=== PATIENT | male | born 1995 | race Caucasian/White ===

== ENCOUNTER 2017-10-28 17:31 | Emergency (ER) | payer OTHER ==
[2017-10-28] MEDS ORDERED: Ondansetron INJ* 2 MG/ML VIAL IV ONE (17:42)
[2017-10-28] MEDS ORDERED: Morphine VIAL* 4 MG/ML VIAL (1 ml vial) IV ONE (17:43)
--- NOTE | 2017-10-28 18:04 | ED ---
Upper Extremity Pain - HPI Summary HPI Summary: 22 male presents ER with complaints of left wrist pain after falling from a ladder approximately 8 feet as he was 6 steps up just prior to arrival. FOOSH injury. Obvious deformity to the left wrist. Denies numbness however has some tingling intermittently in his left fingers. Patient is right-hand dominant. Denies head injury and neck injury or back injury. Denies any other injury/ pain. No loss of consciousness and did not hit head. Fall was witnessed. No blood thinners in no past medical history. No medications. States pain is an 8 out of 10. No chest pain or trouble breathing. No abdominal pain. Admits to some abrasions over his knees and shins bilaterally. - History of Current Complaint Chief Complaint: EDExtremityUpper Stated Complaint: WRIST INJURY Time Seen by Provider: 10/28/17 17:40 Hx Obtained From: Patient, Family/Global Safety Officer - Coworker Mechanism Of Injury: Fall From Height Of: - Approximately 8 feet, 6 steps off a ladder Onset/Duration: Started Hours Ago, Traumatic, Still Present Timing: Constant Severity Initially: Severe Severity Currently: Moderate Pain Location: Wrist - Left Character: Sharp, Aching Aggravating Factor(s): Movement Alleviating Factor(s): Nothing, Rest Associated Signs & Symptoms: Positive: Swelling, Numbness/Tingling - tingling intermittently, Other - obvious deformity Related History: Dominant Hand Right - Allergies/Home Medications Allergies/Adverse Reactions: Allergies Allergy/AdvReac Type Severity Reaction Status Date / Time No Known Allergies Allergy Verified 10/28/17 17:44 PMH/Surg Hx/FS Hx/Imm Hx Endocrine/Hematology History: Denies: Hx Anticoagulant Therapy, Hx Diabetes Cardiovascular History: Denies: Hx Hypertension Respiratory History: Denies: Hx Asthma - Surgical History Surgery Procedure, Year, and Place: none - Immunization History Immunizations Up to Date: Yes Infectious Disease History: No Infectious Disease History: Denies: Traveled Outside the [place] in Last 30 Days - Family History Known Family History: Positive: None - Social History Alcohol Use: Rare Substance Use Type: Reports: None Smoking Status (MU): Never Smoked Tobacco Review of Systems Constitutional: Negative Cardiovascular: Negative Respiratory: Negative Positive: Arthralgia, Myalgia, Decreased ROM Positive: Paresthesia All Other Systems Reviewed And Are Negative: Yes Physical Exam Triage Information Reviewed: Yes Vital Signs On Initial Exam: Initial Vitals Temp Pulse Resp BP Pulse Ox 98.3 F 114 20 143/89 100 10/28/17 17:37 10/28/17 17:37 10/28/17 17:37 10/28/17 17:37 10/28/17 17:37 Vital Signs Reviewed: Yes Appearance: Positive: Well-Appearing, No Pain Distress, Well-Nourished Skin: Positive: Warm, Skin Color Reflects Adequate Perfusion, Dry, Other - edema left wrist. superficial abrasion to anterior knees/lower leg no active bleeding, no FB, with mild ecchymosis. no bumps or tenderness on palpation. Negative: Cold, Soft, Pale, Erythema @ Head/Face: Positive: Normal Head/Face Inspection, Other - no epistaxis, racoon eyes, facial bone tenderness or battles signs. small abrasion, no active bleeding to left forehead, no hematoma. Negative: Temporal Artery Tenderness, Scalp Eyes: Positive: Normal, EOMI, SARAVANAN, Conjunctiva Clear ENT: Positive: Normal ENT inspection, Hearing grossly normal, Pharynx normal, TMs normal, Uvula midline Neck: Positive: Supple, Nontender Respiratory/Lung Sounds: Positive: Clear to Auscultation, Breath Sounds Present. Negative: Rales, Rhonchi, Wheezes Cardiovascular: Positive: Normal, RRR, Pulses are Symmetrical in both Upper and Lower Extremities. Negative: Murmur, Rub, Tachycardia Abdomen Description: Positive: Nontender, No Organomegaly, Soft Bowel Sounds: Positive: Present Musculoskeletal: Positive: Limited @, Interruption @ - obvious deformity at left wrist, dinner fork deformity, Pain @ - left wrist, Edema Left - wrist, Other - rest of MSK exam normal full ROM, sensation and without pain/tenderness or deformity Neurological: Positive: Normal, Sensory/Motor Intact, Alert, Oriented to Person Place, Time, CN Intact II-III, Reflexes Intact, NV Bundle Intact Distally, Normal Gait Diagnostics - Vital Signs Vital Signs Temp Pulse Resp BP Pulse Ox 10/28/17 17:47 20 10/28/17 17:37 98.3 F 114 20 143/89 100 - Laboratory Lab Statement: Any lab studies that have been ordered have been reviewed, and results considered in the medical decision making process. - Radiology wrist Xray Interpretation: Positive (See Comments) - Comminuted fracture distal radius with dorsal angulation and fracture of the ulnar styloid process. Radiology Interpretation Completed By: Radiologist left forearm Xray Interpretation: Positive (See Comments) - Comminuted fracture distal radius with dorsal angulation. Radiology Interpretation Completed By: Radiologist post reduction Xray Interpretation: Positive (See Comments) - Comminuted fracture distal radius reduced from prior exam and in near anatomic alignment. Radiology Interpretation Completed By: Radiologist Re-Evaluation - Re-Evaluation First Eval Re-Evaluation Time: 19:30 Change: Improved Course/Dx - Course Course Of Treatment: Patient given morphine and Zofran for pain management prior to reduction. X-ray obtained showing fractured radius and ulna displaced. Patient required reduction. Dr. Reynolds assisted in reduction and splinting. See separate procedure note.. Hematoma block was performed. Patient was placed in a sugar tong splint. Post reduction x-ray shows near anatomical alignment. Patient tolerated procedure well and was comfortable. Sent home with pain management. Rice and ibuprofen. Follow-up with orthopedics tomorrow. Do not get splint wet. Aware worsening signs and symptoms watch out for. Follow-up with primary care provider. No other concerns at this time. Rest of exam was normal. Patient denied any other complaints or injuries/pain. Therefore no further imaging or labs were obtained. - Diagnoses Differential Diagnosis/HQI/PQRI: Positive: Fracture (Closed), Strain, Sprain Provider Diagnoses: Wrist fracture, left Discharge - Sign-Out/Discharge Documenting (check all that apply): Patient Departure - Discharge Plan Condition: Improved Disposition: HOME Prescriptions: HYDROcodone/ACETAMIN 5-325 MG* [Byers 5-325 TAB*] 1 tab PO Q6H PRN #6 tab MDD 2 PRN Reason: Pain Patient Education Materials: Wrist Fracture in Adults (ED) Referrals: Rohan Houser MD [Medical Doctor] - Additional Instructions: Call to make an appointment with orthopedics to be seen tomorrow. Rest, elevate, ice and take ibuprofen (600mg every 6 hours with food) and pain meds as needed. Do not remove splint will get splint wet. Any new or worsening symptoms please seek medical attention. Splint feels too tight U experience any numbness or tingling or loss of blood to her fingers please return to ER as we discussed. - Billing Disposition and Condition Condition: IMPROVED Disposition: Home
--- NOTE | 2017-10-28 18:38 | RAD ---
Indication: Left wrist injury. 3 views of the wrist demonstrates comminuted fracture distal radius with posterior angulation. Fracture of the ulnar styloid process is also noted. IMPRESSION: Comminuted fracture distal radius with dorsal angulation and fracture of the ulnar styloid process.
--- NOTE | 2017-10-28 18:38 | RAD ---
Indication: Left forearm injury. 2 views of left forearm demonstrates comminuted fracture distal radius with dorsal angulation. Remainder of the radius and ulna are unremarkable. IMPRESSION: Comminuted fracture distal radius with dorsal angulation.
[2017-10-28] MEDS ORDERED: Lidocaine 2% PF * 5 ML VIAL ONE (19:16)
[2017-10-28] MEDS ORDERED: fentaNYL* 50 MCG/ML 2 ML VIAL (100 MCG VIAL) IV SLOW PU ONE (19:33)
--- NOTE | 2017-10-28 20:15 | CONSULT ---
Consult Consult: Pt was seen by RAGHU Zurita. Fracture reduction and splinting done by Dr. Jyoti Reynolds. PROCEDURES: Reduction and splinting of distal radial fracture using a hematoma block with Lidocaine 2%. Using finger traps and a 10 lb weight, the fracture was manipulated and reduced. NV exam both pre and post-reduction was intact. Post- reduction XR shows significant improvement in alignment. Splinted with a sugar tong splint on the left using orthoglass.
--- NOTE | 2017-10-28 20:27 | RAD ---
Indication: Traumatic fracture distal radius 3 views of the wrist demonstrates reduction of previously identified fracture of the distal radius. Dorsal angulation has been reduced. IMPRESSION: Comminuted fracture distal radius reduced from prior exam and in near anatomic alignment.
[2017-10-28 20:28] VITALS: BP 129/78
== END 2017-10-28 20:27 | disposition home or self-care (01) ==
LOC: ED 17:31
DX: S52.502A Unspecified fracture of the lower end of left radius, initial encounter for closed fracture (principal); S52.612A Displaced fracture of left ulna styloid process, initial encounter for closed fracture; W11.XXXA Fall on and from ladder, initial encounter; Y92.9 Unspecified place or not applicable
CPT/HCPCS: 25605; 96374; 96375; 99283; J2270; J2405; J3010

== ENCOUNTER 2017-10-31 06:26 | Day surgery (SDC) | payer OTHER ==
--- NOTE | 2017-10-29 20:35 | HP ---
PREOPERATIVE HISTORY AND PHYSICAL: DATE OF ADMISSION/SURGERY: 10/31/17 - [facility] DATE OF OFFICE VISIT/ENCOUNTER: 10/29/17 ATTENDING SURGEON: Lani Bassett MD * (DICTATED BY RAGHU GIVENS) PROCEDURE: Open reduction internal fixation, left wrist. CHIEF COMPLAINT: Left wrist fracture after a fall. HISTORY OF PRESENT ILLNESS: This is a 22-year-old male, who sustained injury to his left wrist at work on 10/28/17. 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 He was up on a ladder and he fell off the ladder and landed on an outstretched left wrist. He was initially seen at [facility] Emergency Room and had x-rays, which showed a displaced fracture of the distal radius. It was reduced and placed in a splint. He was referred to Dr. Bassett for further evaluation and treatment considerations. The patient denies numbness and tingling. After evaluation by Dr. Bassett and review of x-rays, it has been recommended that the patient undergo surgical intervention at this time for best outcome. The patient has consented to proceed with an open reduction internal fixation, left wrist. PAST MEDICAL HISTORY: History of lightheadedness. The patient attributes this to not eating enough during the day and possibly some of the fumes he regularly is around during his job. PAST SURGICAL HISTORY: None. MEDICATIONS: None. ALLERGIES: No known drug allergies. FAMILY HISTORY: Prostate cancer. 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 He denies tobacco use. He does admit to smoking marijuana with some regularity. He denies drinking alcohol. REVIEW OF SYSTEMS: General: Negative for fevers, chills, night sweats, unexplained weight loss/gain. HEENT: Negative for headaches, syncopal episodes , visual changes. Integumentary: Negative for abrasions, lesions, or open wounds. Cardiothoracic: Negative for hypertension, chest pain, palpitations, edema. Respiratory: Negative for shortness of breath with exertion, chronic cough, wheezing. GI: Negative for nausea, vomiting, diarrhea, constipation, GERD. : Negative for nocturia, urinary frequency, urgency, history of UTIs, kidney problems. Musculoskeletal: Positive for current complaint. Negative for chronic or intermittent back pain. No history of fractures. Neurological: Negative for paresthesias, numbness, history of seizure, stroke, poor balance. Endocrine: Negative for diabetes and thyroid issues. Hematologic: Negative for easy bruising, anemia, bleeding disorders, history of DVT. Infectious Disease: Negative for history of MRSA, hepatitis C, HIV. PHYSICAL EXAMINATION GENERAL: Well-developed, well-nourished, 22-year-old male, in no acute distress. VITAL SIGNS: Height 5 feet 10 inches, weight 146 pounds, pulse rate 70, blood pressure 132/88. HEENT: Normocephalic, atraumatic. Pupils are equal, round, and reactive to light and accommodation. Extraocular movements are intact. NECK: Supple. No palpable lymph nodes. Throat is clear. PULMONARY: Lungs are clear to auscultation bilaterally. No wheezes, rales, or rhonchi. CARDIOVASCULAR: Regular rate and rhythm. S1, S2. No murmurs, rubs, or gallops. No edema. ABDOMEN: Positive bowel sounds, soft, nontender. MUSCULOSKELETAL: On exam of the left upper extremity, his left arm is maintained in a sugar tong splint. He has mild swelling in his fingers. There is intact sensation to light touch in his fingers and he is able to easily wiggle them. NEUROLOGICAL: Alert and oriented x3. Cranial nerves II through XII are intact. Sensation is intact to light touch. IMAGING STUDIES: X-rays of the left wrist show pre- and post-reduction views of the wrist. There is an intra-articular distal radius fracture with interval reduction, but some persistent angulation. There is also a comminuted fracture at the tip of the ulnar styloid. ASSESSMENT: Left distal radius fracture and ulnar styloid fracture with persistent malalignment. PLAN: The patient is scheduled to undergo an open reduction internal fixation, left wrist, with Dr. Bassett on 10/31/17. He will return to the office 10 days postop for followup and suture removal. A prescription for Percocet was e- scribed to the patient's pharmacy for postoperative pain management. RAGHU GIVENS [id number]/[facility] #: [id number] MTDAngel
[~2017-10-31 06:26] MED LIST: Buffered Lidocaine 0.9% SYRIN* 5 ML/SYR SYRINGE INTRADERM ONE; Sodium Citrate/Citric Acid* 15 ML UDC ONE; Sodium Citrate/Citric Acid* 15 ML UDC PO ONE; ceFAZolin 2 GM PREMIX (*) 2 GM/50 ML BAG IVPB ONE
[2017-10-31] MEDS ORDERED: Bupivacaine 0.5% PF 10 ML VIAL INJ ONE (07:08)
[2017-10-31] MEDS ORDERED: Lidocaine 2% PF * 5 ML VIAL ONE (07:15)
[2017-10-31] MEDS ORDERED: Propofol* 10 MG/ML 20 ML BTL IV PUSH ONE (07:15)
[2017-10-31] MEDS ORDERED: Midazolam* 1 MG/ML 2 ML VIAL (2 MG) ONE (07:16)
[2017-10-31] MEDS ORDERED: fentaNYL* 50 MCG/ML 2 ML VIAL (100 MCG VIAL) ONE (07:16)
[2017-10-31] MEDS ORDERED: fentaNYL* 50 MCG/ML 2 ML VIAL (100 MCG VIAL) IV PRN (07:22)
[2017-10-31] MEDS ORDERED: Naloxone* 0.4 MG/ML 1 ML VIAL IV PRN (07:22)
[2017-10-31] MEDS ORDERED: Ondansetron INJ* 2 MG/ML VIAL IV PRN (07:22)
[2017-10-31] MEDS ORDERED: Ketorolac INJ* 30 MG/ML 1 ML VIAL ONE (08:02)
[2017-10-31] MEDS ORDERED: Dexamethasone IV* 4 MG/ML 1 ML (4 MG) ONE (08:02)
[2017-10-31 08:57] VITALS: BP 117/67
--- NOTE | 2017-10-31 14:55 | OP ---
DATE OF OPERATION: 10/31/17 [facility] DATE OF : 89 SURGEON: Dr. Bassett. FUR PLUCKER: RAGHU Wells ANESTHESIA: General. PRE-OP DIAGNOSIS: Left distal radius fracture, displaced. POST-OP DIAGNOSIS: Left distal radius fracture, displaced. OPERATIVE PROCEDURE: Open reduction and internal fixation of left distal radius fracture. ESTIMATED BLOOD LOSS: Zero. TOURNIQUET TIME: About 30 minutes. INDICATION FOR PROCEDURE: Kemar is a 22-year-old male who injured his left wrist when he fell off a ladder at work. He has a displaced fracture of his left distal radius, presents for ORIF. DESCRIPTION OF PROCEDURE: The patient was brought to the operating room, was given a general anesthetic and placed in the supine position on the operating table with a tourniquet around his left upper arm. The skin of his left upper extremity was prepped and draped in the usual sterile fashion. The hand and forearm were exsanguinated and the tourniquet elevated to 250 mmHg. A longitudinal incision was made over the FCR tendon and dissected sharply through the superficial and deep portion of the FCR tendon sheath and retracted the FPL muscle and tendon ulnarly. The pronator quadratus was incised and subperiosteally dissected off of the distal radius. The fracture was reduced with a freer elevator and then a plate from the [employer] variable angle distal radius set was secured with 3 proximal and 4 distal screws. The position of the hardware and fracture fragments were detected on the C- arm with AP and lateral views and found to be satisfactory. The wound was irrigated. The pronator quadratus was repaired over the plate. The deep portion of the FCR tendon sheath was repaired with 2-0 Vicryl suture and the skin edges were reapproximated with 4-0 nylon suture. The wound was dressed with Xeroform, 4x4 , Webril and a volar splint. The patient tolerated the procedure well and was brought to the recovery room in good condition. [id number]/[facility] #: [id number] MTDD
--- NOTE | 2017-10-31 15:20 | RAD ---
INDICATION: Traumatic fracture of the left wrist operative reduction and internal fixation. COMPARISON: Comparison is made with a prior x-ray study of the left wrist from October 28, 2017. TECHNIQUE: 28 seconds of intermittent fluoroscopic guidance were provided and 2 spot films of the left breast were obtained in the operating room. FINDINGS: The films demonstrate operative reduction internal fixation of a comminuted fracture of the distal radius. There is a surgical metallic plate present along the volar aspect of the distal radius transfixed with multiple screws spanning the fracture fragments. There is also a avulsion fracture of the ulnar styloid process. IMPRESSION: INTRAOPERATIVE CONTROL FILMS. CPT II Codes: G9500
== END 2017-10-31 09:20 | disposition home or self-care (01) ==
LOC: OREAST 06:26
PROVIDERS: ATTEND Orthopaedic Surgery
DX: S52.572A Other intraarticular fracture of lower end of left radius, initial encounter for closed fracture (principal); W11.XXXA Fall on and from ladder, initial encounter; Y93.89 Activity, other specified; Y92.9 Unspecified place or not applicable; Y99.8 Other external cause status; F41.9 Anxiety disorder, unspecified
CPT/HCPCS: 76000; A9270-GY; C1713; C1776; J0690; J1100; J1885; J2250; J2704; J3010